=== PATIENT | female | born 2005 ===

== ENCOUNTER 2025-02-06 08:15 | Outpatient (CLI) | payer OTHER, SELFPAY | END 2025-02-06 08:16 | disposition home or self-care (01) | PROVIDERS: PCP Family Medicine; Visit Provider Family Medicine | DX: E28.2 Polycystic ovarian syndrome (principal); E66.3 Overweight; Z13.21 Encounter for screening for nutritional disorder | CPT/HCPCS: 80053; 80061; 82607; 84443; 84703 ==

== ENCOUNTER 2025-05-24 13:57 | Outpatient (CLI) | payer OTHER, SELFPAY ==
--- NOTE | 2025-05-24 14:00 | CRLHL7_ITS ---
For Patients: As a result of the Century Cures Act, medical imaging exams and procedure reports are released immediately into your electronic medical record. You may view this report before your referring provider. If you have questions, please contact your health care provider. OB ULTRASOUND FIRST TRIMESTER TRANSVAGINAL INDICATION: Dating and viability. TECHNIQUE: Real time dickey scale imaging of the fetus was performed. Transvaginal imaging performed. LMP: 03/26/2025. JOGRE by LMP: 12/31/2025. GA: 8 w, 3 d. Previous US: No. CRL: 2.3 cm. 9 w 0 d. JORGE: 12/27/2025. FHR: 178 BPM. Gestational sac: 3.4 cm. Appears within normal limits. Yolk sac: 3.5 mm. Appears within normal limits. Right ovary: Within normal limits. 3.3 x 1.3 x 1.8 cm. Left ovary: Within normal limits. 4.0 x 2.3 x 2.1 cm. IMPRESSION: 1. Single living intrauterine measuring 9 weeks 0 days and sonographic due date 12/27/2025. 2. Curvilinear subchorionic hemorrhage measures 1.9 x 0.6 x 1.6 cm. Hernan Donohue M.D. Diagnostic Radiologist [email or web address] SP/Dictated by: Hernan Donohue MD @ 05/24/2025 5:01:00 PM (Electronically Signed)
== END 2025-05-24 13:58 | disposition home or self-care (01) ==
LOC: US 13:58
PROVIDERS: PCP Family Medicine; Visit Provider Registered Nurse
DX: Z34.91 Encounter for supervision of normal pregnancy, unspecified, first trimester (principal); Z3A.08 8 weeks gestation of pregnancy
CPT/HCPCS: 76817

== ENCOUNTER 2025-05-24 16:16 | Outpatient (CLI) | payer OTHER, SELFPAY | END 2025-05-24 16:17 | disposition home or self-care (01) | LOC: NFLDREF 16:17 | PROVIDERS: PCP Family Medicine; Visit Provider Registered Nurse | DX: Z34.91 Encounter for supervision of normal pregnancy, unspecified, first trimester (principal); Z3A.08 8 weeks gestation of pregnancy; E04.1 Nontoxic single thyroid nodule | CPT/HCPCS: 83020; 83021; 84443; 85660; 86592; 86703; 86704; 86706; 86762; 86787; 86803; 86850; 86900; 86901; 87086; 87340; 87491; 87591 ==

== ENCOUNTER 2025-06-21 09:11 | Outpatient (CLI) | payer OTHER, SELFPAY ==
--- NOTE | 2025-06-21 09:15 | CRLHL7_ITS ---
For Patients: As a result of the Century Cures Act, medical imaging exams and procedure reports are released immediately into your electronic medical record. You may view this report before your referring provider. If you have questions, please contact your health care provider. INDICATION: Enlarged Thyroid on Exam COMPARISON: none TECHNIQUE: Begum scale and color Doppler images were acquired of the thyroid gland. FINDINGS: The thyroid gland demonstrates normal uniform echogenicity and has a smooth outer contour. The right lobe measures 4.6 x 1.3 x 1.4 cm and the left lobe measures 4.3 x 1.0 x 1.5 cm in size. Isthmus measures 2 millimeters. There are no suspicious masses or nodules. The color Doppler images demonstrate normal vascularity. There is no evidence of cervical lymphadenopathy or parathyroid mass. IMPRESSION: Normal thyroid ultrasound. Dictated by Hernan Donohue MD @ 06/21/2025 4:25:19 PM (Electronically Signed)
== END 2025-06-21 09:12 | disposition home or self-care (01) ==
LOC: US 09:11
PROVIDERS: PCP Family Medicine; Visit Provider Registered Nurse
DX: E04.9 Nontoxic goiter, unspecified (principal)
CPT/HCPCS: 76536

== ENCOUNTER 2025-07-16 01:46 | Emergency (ER) | payer OTHER, SELFPAY ==
--- OUTSIDE RECORDS SUMMARY | 2025-07-16 01:48 | XMS_ITS | Clinical Summary ---
Author Organization [email or web address] Address [address] [place] [id number] Care Team Providers Care Knitted Goods Shaper Name Role Phone Thomas Mcdowell MD Primary Care Provider Allergies No known active allergies Medications vit 28/iron fum/folic (multivitamin folic acid 1 mg) Take 1 Tablet by mouth once daily. Active acetaminophen (TYLENOL) 325 mg tabletIndicati ons:Vaginal delivery (HC) Take 1-2 Tablets (325-650 mg) by mouth every 4 hours if needed (mild pain). Max acetaminophen dose: 4000mg in 24 hrs. 4 Active ibuprofen (Motrin IB) 200 mg tabletIndicati ons:Vaginal delivery (HC) Take 1-3 Tablets (200-600 mg) by mouth every 6 hours if needed (for uterine cramping). Take with food. 4 Active docusate (COLACE) 100 mg capsuleIndicat ions:Vaginal delivery (HC) Take 1 Capsule (100 mg) by mouth once daily. 4 Active Active Problems Problem Noted Date Diagnosed Date Vaginal delivery 03/31/2024 Anemia affecting in third trimester Encounter for elective induction of labor 2023 Insufficient care 03/27/2024 Encounter for supervision of normal , unspecified, unspecified trimester 08/24/2023 Overview (03/30/2024): Term in 2021 Datin wk US (LMP unknown)08/24=8+0 FOB: Jayesh (significant other) Blood type: O pos (antibodies neg) Carrier/aneuploidy screening: Declined Rubella immune, Rh positive Influenza vaccine: anatomy scan: WNL OGTT: 134 Hb at 28 weeks: 11.4 Tdap: 01/11 GBS: Negative PPBC: POP Feeding plan: Breast Presentation at 33 wks: Cephalic Delivery Plans: IOL 39 weeks Next visit: Cervix check, confirm presentation Issues: ADHD: No medications, stable Renal Pyelectasis: Resolved at 33 weeks Single intrauterine at 33 w 1 d gestation. Growth consistent with the 51st percentile. Bilateral renal pelvis measurements within normal limits for gestational age, no further renal follow-up needed. 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 Attention deficit hyperactivity disorder (ADHD) 08/08/2018 Resolved Problems Problem Noted Date Diagnosed Date Resolved Date Vaginal delivery 08/22/2022 03/30/2024 Decreased movements in third trimester 08/20/2022 Viral upper respiratory tract infection 07/20/2022 08/20/2022 Supervision of young primigr avida, first trimester 01/08/2022 03/30/2024 Encounter for supervision of normal first , unspecified trimester 01/06/2022 022 Overview (07/20/2022): G1 Rubella immune, Rh pos Covid Vaccine: s/p Influenza vaccine: anatomy scan: wnl OGTT: passed Hb at 28 weeks: wnl Tdap: given on 06-01-2022 GBS: PPBC: Presentation at 36 wks: Next visit: Issues: 1. Teenage - s/p SW consult 2. ADHD - no meds 3. 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 Teenage - s/p SW consult 2. ADHD - no meds 3. 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 0 03/30/2024 Financial Resource Strain Answer Date R ecorded Difficulty of Paying Living Expenses 3 03/31/2024 Difficulty of Paying Living Expenses Not on file 03/31/2024 Food Insecurity Answer Date Recorded Do you worry your food will run out before you are able to buy more? 1 03/30/2024 Transportation Needs Answer Date Record ed Does lack of transportation keep you from medica l appointments? 1 03/30/2024 Does lack of transportation keep you from work, meetings or getting things that you need? 1 03/30/2024 Housing Stability Answer Date Recorded What is your housing situation today? 1 03/30/2024 Interpersonal Safety Answer Date Record ed Are you being hit, kicked, p ushed or yelled at (see row info)? No 03/30/2024 Interpersonal Safety Abuse 12 - 18 Not on file 03/30/2024 Interpersonal Safety Ambulatory Vulnerability No t on file 03/30/2024 Utilities Answer Date Recorded Do you have trouble paying f or utilities (for example, heat, electricity, water, phone)? 1 03/30/2024 Comments No Sex and Gender Information Value Date Recorded Sex Assigned at Not on file Legal Sex Female 7:11 AM [employer] WORK[employer] Gender Identity Not on file Sexual Orientation Not on file Obstetrics History Para Term AB IAB SAB Ectopic Multiple Livin g Live Births 3 2 2 1 1 0 2 2 Date Outcome GA Total Labor Labor/2nd/3rd Weight Sex Type Anes PTL Maria C A1 A5 Name Clin 2021 Term 40w 2d 16h 36m 15h 03m/1h 29m/0h 04m 3.53 kg (7 lb 12.5 oz) M Vag-Sp ont Livin g 6 8 STAND KE,BB SHERYL Carde alpa-S tophe l, Raque l Tares a, DO Delivery Location:Hospital ( [facility] ) SAB SPONTA NEOUS 2023 Term 39w 3d 7h 45m 7h 22m/0h 18m/0h 05m 3.21 kg (7 lb 1.2 oz) M VAGINA L SANJAY Epidur al Livin g 7 8 Noris Ardon MD Complications:Category II: I ndeterminate,Shoulder Dystocia Delivery Location:Hospital ( [facility] ) Last Filed Vital Signs Vital Sign Reading Time Taken Comments Blood Pressure 110/68 04/01/2024 8:00 AM CDT Pulse 68 04/01/2024 8:00 AM CDT Temperature 36.7 C (98 F) 04/01/2024 8:00 AM CDT Respiratory Rate 18 04/01/2024 8:00 AM CDT Oxygen Saturation 93% 03/31/2024 10:30 AM CDT Inhaled Oxygen Concentration - - Weight 77.6 kg (171 lb 1.2 oz) 03/30/2024 8:30 P M CDT Height 149.9 cm (4' 11) 03/30/2024 8:30 PM CDT Body Mass Index 34.55 03/30/2024 8:30 PM CDT Plan of Treatment Health Maintenance Due Date Last Done Comments Tetanus booster 2014 Depression screening for age 12+ 2015 HPV series for age 9-45 (1 - 3-dose series) 2018 BMI (ht and wt on same day) for age 18+ 2021 Hepatitis C screening for ag e 18-79 2021 Hepatitis B series for 19+ ( 1 of 3 - 19+ 3-dose series) 2022 Pap test for age 21-65 2024 COVID-19 vaccine series ( - 2024- season) 2025 02/11/2021, 01/15/2021 Influenza Vaccine (#1) 2025 RSV vaccine for adults or (1 - 1-dose 75+ series) 2078 HIV for age 15-65 Completed 10/18/2023, 01/08/2022, 01/08/2022 Meningococcal series for age 11-21 Aged Out No longer eligible b ased on patient's age to complete this topic Pneumococcal series for age 6-49 Aged Out No longer eligible b ased on patient's age to complete this topic Procedures Procedure Name Priority Date/Time Associated Diagnosis Comments HIV EXTERNAL Routine 10/18/2023 from Last 3 Months or Most Recently Relevant to Health Maintenance Results * HIV EXTERNAL (10/18/2023) EXTERNAL HIV Negative [facility] Blood BLOOD SPECIMEN / Unknown us Nrois Laureano MD LABORATORY Final Result [facility] [address] [place] [address], from Last 3 Months or Most Recently Relevant to Health Maintenance Insurance [facility] [place] Advance Directives * Full Code (Latest Code Status on File) Date Activated Date Inactivated Comments 03/31/2024 4:03 AM 04/01/2024 3:14 PM Question Answer Comments Code Status Discussion: Other pregnanc y * Full Code Date Activated Date Inactivated Comments 08/19/2022 5:44 PM 08/22/2022 12:17 PM Question Answer Comments Code Status Discussion: Discussed Care Teams Knitted Goods Shaper Relationship Specialty Start Date End Date Thomas Mcdowell MD PCP - General Family Practice 09/22/14
--- OUTSIDE RECORDS SUMMARY | 2025-07-16 01:48 | XMS_ITS | Clinical Summary ---
Author Organization [facility] Address [address] [place] [address] Care Team Providers Care Development Administrator Name Role Phone Evette Otto M.D. Primary Care Provider Source Comments Patient records contain information from all sites at [facility]. For routine questions regarding patient records, call [phone] during business hours, M-F 8:00 AM - 5:00 PM Central Time. Record requests for emergency care only can be directed to [phone] at any time.[facility] Allergies No known active allergies Medications * This document contains information received from the source organization and may not represent a complete record from that organization. acetaminophen (TYLENOL) 325 mg tablet Take 325 mg by mouth every 4 (four) hours as needed for pain. Active jbhlils-Zw-hrdr- FA (VINATE ONE) 60 mg iron-1 mg per tablet Take 1 tablet by mouth daily. Active sertraline (Zoloft) 50 mg tablet Take 1 tablet by mouth daily. 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 11/27/2024 Amputation Hand Status Post Right 01/06/2022 Attention Deficit With Hyperactivity Disorder Estimated Date of Delivery Comme nts Yes 09/14/2025 Based on last me nstrual period of 12/08/2024 (Approximate) Resolved Problems Problem Noted Date Diagnosed Date Resolved Date Care Insufficient 03/27/2024 0 05/08/2024 Encounter For Supervision Of Normal Unspecified Trimester 08/24/2023 05/08/2024 Overview (03/28/2024): Term in 2021 Datin wk US (LMP [...] stable Renal Pyelectasis: Resolved at 33 weeks Supervision Of Young Primigr avida First Trimester 01/08/2022 08/24/2023 Encounter For Supervision Of Normal First Unspecified Trimester 01/06/2022 08/24/20 23 Overview (08/16/2022): G1 Rubella immune, Rh pos Covid Vaccine: s/p Influenza vaccine: anatomy scan: wnl OGTT: passed Hb at 28 weeks: wnl Tdap: given on 06-01-2022 GBS: neg PPBC: Presentation at 36 wks: cephalic Next visit: IOL scheduled for 08/24 at 1930 Issues: 1. Teenage - s/p SW consult 2. ADHD - no meds 3. 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 Immunizations Immunization Administration Dates Next Due 4vHPV (discontinued) 03/02/2017,07/01/2016,04/08 DTaP (Daptacel) 04/23/2009 DTaP (Infanrix, Tripedia) 2005,07/2005,12/31/2004,2004 HepA Pediatric/Adolescent 04/08/2016,04/23/2009 Hib-HepB 2005,12/31/2004,10/01/2004 IPV 04/23/2009, 5,12/31/2004,2004 Influenza Split 07/21/2015 Influenza, Unspecified 07/01/2016 MCV4 (Menactra)(Discontinued) 05/25/2021, 016 MMR 04/23/2009,12/31/2004 PCV7 (discontinued) 2005,04/05/2005 SARS-COV-2 (COVID-19) - PFIZ ER (Discontinued)(12 years or older) 01/15/2021 Tdap 01/12/2024,,04/08/2016,2013 ANISA 04/23/2009,12/31/2004 influenza trivalent vaccine (6 months and older)(PF) 08/27/2009,08/02/2007 influenza vaccine quad (FLUZONE/FLUARIX) (6 months and older)(PF) 08/02/2022,07/04/2019,08/08/2018,2013 Social History Tobacco Use Types Packs/Day Years Used Date Smoking Tobacco: Never Passive Smoke Exposure: Never Smokeless Tobacco: Never Tobacco Cessation:Counseling Given: Not Answered Alcohol Use Standard Drinks/Week Comments No 0 (1 standard drink = 0.6 oz pur e alcohol) [facility] Carrier Mobileities Answer Date Recorded In the past 12 months has e [employer], oil, or water [employer] threatened to shut off services in your home? No 01/30/2025 Humiliation, Afraid, Rape, and Kick questionnair e Answer Date Recorded Within the last year, have y ou been afraid of your partner or ex-partner? No 01/30/2025 Within the last year, have y ou been humiliated or emotionally abused in other ways by your partner or ex-partner? No Within the last year, have y ou been kicked, hit, slapped, or otherwise physically hurt by your partner or ex-partner? No 01/30/2025 Within the last year, have y ou been raped or forced to have any kind of sexual activity by your partner or ex-partner? No 01/30/2025 Hunger Vital Sign Answer Date Recorded Within the past 12 months, y ou worried that your food would run out before you got the money to buy more. Never true 01/31/20 25 Within the past 12 months, t he food you bought just didn't last and you didn't have money to get more. Never true 01/30/2025 PRAPARE - Transportation Answer Date Re corded In the past 12 months, has l ack of transportation kept you from medical appointments or from getting medications? No 03/2025 In the past 12 months, has l ack of transportation kept you from meetings, work, or from getting things needed for daily living? No 01/30/2025 Depression Answer Date Recor ded PHQ-9 Total Score (max 27) 0 01/30 Housing Stability Answer Date Recorded What is your living situation today? I have a [facility] place to live 01/30/2025 Education Answer Date Recorded What is the highest level of school you have completed or the highest degree you have received? 12th grade 01/08/2022 Estimated Date of Delivery Comme nts Yes 09/14/2025 Based on last me nstrual period of 12/08/2024 (Approximate) Sex and Gender Information Value Date Recorded Sex Assigned at Not on file Legal Sex Female 6:42 AM APPLIER Gender Identity Not on file Sexual Orientation Straight 01/08/2022 8: 21 AM CDT Last Filed Vital Signs Vital Sign Reading Time Taken Comments Blood Pressure 130/84 01/28/2025 7:47 AM CDT Pulse 71 01/28/2025 7:47 AM CDT Temperature 36.2 C (97.1 F) 01/28/2025 7:47 AM CDT Respiratory Rate 16 01/05/2024 8:19 AM CDT Oxygen Saturation 97% 01/05/2024 8:19 AM CDT Inhaled Oxygen Concentration - - Weight 62.3 kg (137 lb 5.6 oz) 11/21/2024 10:20 AM APPLIER Height 153 cm (5' 0.24) 11/21/2024 10:20 AM APPLIER Body Mass Index 26.61 11/21/2024 10:20 AM APPLIER Plan of Treatment Health Maintenance Due Date Last Done Comments TB Screening during Well Child Visit 2003 1 week Well Child Check-Up 2003 1 month Well Child Check-Up 2003 2 month Well Child Check-Up 2003 4 month Well Child Check-Up 2003 9 month Well Child Check-Up 05/02/2004 15 month Well Child Check-Up 11/02/2004 18 month Well Child Check-Up 01/30/2005 2 year Well Child Check-Up 08/02/2005 30 month Well Child Check-Up 01/30/2006 3 year Well Child Check-Up 08/02/2006 Well Child Check-Up Completed in Past Year 08/02/2006 5 year Well Child Check-Up 08/02/2008 6 year Well Child Check-Up 08/02/2009 7 year Well Child Check-Up 08/02/2010 8 year Well Child Check-Up 08/02/2011 10 year Well Child Check-Up 08/02/2013 12 year Well Child Check-Up 08/02/2015 13 year Well Child Check-Up 08/02/2016 14 year Well Child Check-Up 08/02/2017 15 year Well Child Check-Up 08/02/2018 17 year Well Child Check-Up 08/02/2020 18 year Well Child Check-Up 08/02/2021 19 year Well Child Check-Up 08/02/2022 20 year Well Child Check-Up 08/02/2023 21 year Well Child Check-Up 08/02/2024 Well Child Check-Up (WCC) 08/02/2024 COVID-19 Vaccine ( - season) 2025 02/11/2021, 01/15/2021 Influenza Vaccine (#1) 2025 , 07/04/2019, 08/08/2018, Additional history exists Tdap vaccine - (27-36 weeks) (1 - Tdap) 06/15/2025 01/12/2024, 06/01/2022, 04/08/2016, Additional history exists RSV vaccine - (32-36 weeks) or 50+ years (1 - Risk 1-dose series) 07/20/2025 Cervical/Vaginal Cancer Screening 11/21/2025 11/21/2024 Chlamydia and Gonorrhea Screening 11/21/2025 08/24/2023, 06/15/2022, 01/08/2022 Postponed from 08/24/2024 (Patient Refused) DTaP,Tdap,and Td Vaccines (10 - Td or Tdap) 01/11/2034 01/12/2024, 06/01/2022, 04/08/2016, Additional history exists Hepatitis B Vaccines Completed 2005, 12/31/2004, 10/01/2004 Pneumococcal vaccine (0-49 years) Aged Out 2005, 04/05/2005 No longer eligibl e based on patient's age to complete this topic IPV Vaccines Completed 04/23/2009, 03/26, 12/31/2004, Additional history exists Varicella Vaccines Completed 04/23/2009, 12/31/2004 HPV Vaccines Completed 03/02/2017, 1002/2016, 04/08/2016 Meningococcal Vaccine Completed 05/25/2021, 016 HIV Screening Completed 10/18/2023, 01/08/2022 Hepatitis C Screening Completed 10/18/2023 , 01/08/2022, 08/25/2014 Depression Screening (Annual PHQ-2) Completed 01/30/2025 Medical Devices Implanted Type Area Senior Clinical Study Manager Device Identifier Shelf Expiration Date Model / Serial / Lot Conversions - Default Historical Implant Device Implanted:2013 (Quantity not on file) Hardware e.g. pins/screws/r ods Description:Device Status Te xt - Hardware. Wires in right arm. Procedures Procedure Name Priority Date/Time Associated Diagnosis Comments THINPREP SCREEN Routine 11/21/2024 10:41 AM APPLIER Pap Smear Examination HCV AB SCRN , S Routine 10/18/2023 9:23 AM APPLIER Encounter For Supervision Of Other Normal Unspecified Trimester (HCC) HIV-1/-2 AG AND AB SCRN, PLASMA Routine 10/18/2023 9:23 AM APPLIER Encounter For Supervision Of Other Normal Unspecified Trimester (HCC) CHLAMYDIA/GONORRHOE AE AMPLIFIED RNA Routine 08/24/2023 10:28 AM APPLIER Encounter For Supervision Of Other Normal Unspecified Trimester (HCC) from Last 3 Months or Most Recently Relevant to Health Maintenance Results * (ABNORMAL) ThinPrep Screen (11/21/2024 10:41 AM APPLIER) (A) 11/27/2024 1:53 PM APPLIER [facility] Report electronically signed by CARINE Hicks. Ch.B. I verify that I have examined all relevant slides/material s for the specimen(s) and rendered or confirmed the diagnosis. (A) 11/27/2024 1:53 PM APPLIER [facility] Gross Description Received specimen in a ThinPrep vial.(A) 11/27/2024 1:53 PM APPLIER [facility] Pap Test Source Cervical/Endoce rvical(A) 11/27/2024 1:53 PM APPLIER [facility] Hormone Therapy/Contracep tives None/Not known(A) 11/27/2024 1:53 PM APPLIER [facility] Interpretation Cervical/Endoce rvical (ThinPrep): Satisfactory for Evaluation Epithelial Cell Abnormality Atypical squamous cells of undetermined significance (A) 11/27/2024 1:53 PM APPLIER [facility] Thin Prep Vial (Cervix/Endocerv ix) 11/21/2024 10:41 AM APPLIER 11/21/2024 2:05 PM APPLIER us Rae Metz CNM, D.N.P. LAB PAP PATHDX ORDERA BLES Final Result [facility] [address] [place] [id number], [place] [facility] [address] * Hepatitis C Virus Antibody Screen (10/18/2023 9:23 AM APPLIER) HCV Ab Scrn , S Negative Negative 10/19/2023 8:37 AM APPLIER [facility] Comment:Sjbykg-il-ffknrr rat io is <1.00. Blood (Blood, Venous) 10/18/2023 9:23 AM APPLIER 10/19/2023 6:47 AM APPLIER us Rae Metz CNM, D.N.P. LAB MICROBIOLOGY - BL OOD ORDERABLES Final Result [facility] [address] [place] [address] [facility] [address] [place] [address] * HIV-1/-2 Ag and Ab Scrn, Plasma (10/18/2023 9:23 AM APPLIER) HIV Ag/Ab Scrn, P Negative Negative 10/18/2023 4:46 PM APPLIER [facility] Comment: Negative result does not rule out HIV infection. If exposure to HIV infection occurred <14 days ago, contact the laboratory to request addition of HIV-1/HIV-2 RNA detection , Plasma (HPP12). HIV-1 p24 Ag Scrn, P Negative Negative 10/18/2023 4:46 PM APPLIER [facility] Comment: Negative result does not rule out HIV infection. If exposure to HIV infection occurred <14 days ago, contact the laboratory to request addition of HIV-1/HIV-2 RNA detection , Plasma (HPP12). HIV-1 Ab Scrn, P Negative Negative 10/18/2023 4:46 PM APPLIER [facility] Comment: Negative result does not rule out HIV infection. If exposure to HIV infection occurred <14 days ago, contact the laboratory to request addition of HIV-1/HIV-2 RNA detection , Plasma (HPP12). HIV-2 Ab Scrn, P Negative Negative 10/18/2023 4:46 PM APPLIER [facility] Comment: Negative result does not rule out HIV infection. If exposure to HIV infection occurred <14 days ago, contact the laboratory to request addition of HIV-1/HIV-2 RNA detection , Plasma (HPP12). Blood (Blood, Venous) 10/18/2023 9:23 AM APPLIER 10/18/2023 3:07 PM APPLIER Rae Metz CNM, D.N.P. LAB MICROBIOLOGY - BL OOD ORDERABLES Final Result [facility] [address] [place] [id number], [facility] [address] [address] * Chlamydia / Gonorrhoeae Amplified RNA (08/24/2023 10:28 AM APPLIER) Source Swab, Vagina 08/24/2023 9:55 PM APPLIER [facility] Chlamydia trachomatis amplified RNA Negative Negative 08/24/2023 9:55 PM APPLIER [facility] Source Swab, Vagina 08/24/2023 9:55 PM APPLIER [facility] Neisseria gonorrhoeae amplified RNA Negative Negative 08/24/2023 9:55 PM APPLIER [facility] Swab (Vagina) 08/24/2023 10: 28 AM APPLIER 08/24/2023 2:24 PM APPLIER Rae Metz CNM, D.N.P. LAB MICROBIOLOGY - NERAL ORDERABLES Final Result Performing Organization Address City/State/[facility] Co de Phone Number [facility] [address] [place] [address], [facility] [address] [facility] [address] [place] [id number] from Last 3 Months or Most Recently Relevant to Health Maintenance Insurance [facility] [address] [place] [address] [facility] Care Teams Development Administrator Relationship Specialty Start Date End Date Evette Otto M.D. [address] [phone] PCP - General 05/27/24
[2025-07-16 01:50] VITALS: BP 126/85; PULSE 77; RESP 21; TEMP 37; O2SAT 98; BMI 30.5
[2025-07-16] MEDS: ACETAMINOPHEN 500 MG TABLET 1000 MG PO (02:13)
--- NOTE | 2025-07-16 02:47 | ED.GENADULT ---
HPI - General Adult General Chief complaint: OB/Uterine Contractions Stated complaint: possible miscarriage Time Seen by Provider: 07/16/25 02:08 Source: patient Mode of arrival: ambulatory Limitations: no limitations History of Present Illness HPI narrative: 19-year-old female G 4p2 at around 16 weeks gestation presents today with abdominal cramping for the last 6-7 hours, vaginal bleeding that just started upon arrival to the ED, and the sensation that she has to push. Related Data Home Medications ?Medication ?Instructions ?Recorded ?Confirmed docosahexaenoic acid 200 mg mg PO 05/24/25 06/21/25 capsule ( DHA) Previous Rx's ?Medication ?Instructions ?Recorded ondansetron 4 mg disintegrating 4 mg PO Q6-8H PRN nausea and 05/24/25 tablet vomiting #30 tabs escitalopram oxalate 10 mg tablet 10 mg PO QDAY #30 tabs 06/21/25 (Lexapro) Allergies Allergy/AdvReac Type Severity Reaction Status Date / Time No Known Drug Allergies Allergy Verified 07/16/25 01:58 Review of Systems Status of ROS: Reports: 6 or more systems reviewed and unremarkable except as noted in History and below [facility] Medical History Miscarriage ?O03.9 - Complete or unspecified spontaneous without complication (ICD-10) anxiety ?O99.345 - Other mental disorders complicating the puerperium (ICD-10) ?F41.8 - Other specified anxiety disorders (ICD-10) depression ?F53.0 - depression (ICD-10) ADHD (attention deficit hyperactivity disorder) ?F90.9 - Attention-deficit hyperactivity disorder, unspecified type (ICD-10) Acquired absence of right hand (2012) ?Z89.111 - Acquired absence of right hand (ICD-10) Surgical History History of vaginal delivery 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) ?Z89.9 - Acquired absence of limb, unspecified (ICD-10) Family History Other Family history not known due to adoption Social History Narrative: Significant other, [id number] mom, [place], 2 boys, lives in [place] Lifetime nonsmoker Does not drink alcohol What is your current living situation?: I presently have a place to live Problems where you live: declined to answer In the past 12 months, utilities in danger of being shut off: no In past 12 months, lack of transportation kept you from medical appts, meetings, work, or getting things needed for daily living: no In the past 12 mos, have been you worried that your food would run out before you had money to buy more?: never true In the past 12 mos, the food you bought just didn't last and you didn't have money to buy more?: never true How often does anyone, including family, friends and others, physically hurt you: never How often does anyone, including family, friends and others, insult or talk down to you: never How often does anyone, including family, friends and others, threaten you with harm: never How often does anyone, including family, friends and others, scream or curse at you: never Exam Narrative: Exam Narrative: Well-nourished well-developed patient in no acute distress. Alert and oriented. Answers questions appropriately. Mood and affect are appropriate. Thoughts are goal oriented and rational. No tangential or magical thinking noted. Patient speaks in full sentences without needing to catch her breath. HEENT: Normocephalic atraumatic. Pupils are equally round reactive to light. Extraocular muscles are intact. Conjunctivae are moist without any icterus noted. Moist mucous membranes. Cardiovascular: Heart is regular rate and rhythm S1 and S2 are present without any murmurs. Lungs: Clear to auscultation bilaterally no wheezes rhonchi or rales are appreciated. Abdomen: Soft and nondistended with normal bowel sounds. Suprapubic tenderness. Extremities: Bilateral lower extremities are without edema. Skin: Well perfused without any obvious rashes. Const: Vital Signs, click to edit/add: Vital Signs - 24 hr 07/16/25 01:50 07/16/25 03:16 Temperature 98.6 F 98.6 F Pulse Rate [Right Pulse Oximeter] 77 105 H Respiratory Rate 21 16 Blood Pressure [Ri ght Upper Arm] 126/85 104/66 Pulse Oximetry 98 100 Oxygen Delivery Me thod Room Air Room Air Course Course ED Course: I did to a ultrasound where I did not see a heartbeat. Could not get heart tones on Doppler. Consulted with OBGYN, Dr. Min who recommended ultrasound and admission for observation. Did call for a official ultrasound. While we were waiting for the ultrasound patient did feel the need to push ended up delivering an intact amniotic fluid bag with the fetus inside. Placenta delivered with it, intact. Post , patient had no more pain. She had minimal bleeding. Did not require intervention. Patient remained hemodynamically stable and requested discharge at this time. Vital Signs Vital signs: Initial Vital Signs Temperature 98.6 F 07/16/25 01:50 Temperature Source Temporal Artery Scan 07/16/25 01:50 Pulse Rate 77 07/16/25 01:50 Pulse Rhythm Regular 07/16/25 01:50 Respiratory Rate 21 07/16/25 01:50 Blood Pressure 126/85 07/16/25 01:50 Blood Pressure Mean 98 07/16/25 01:50 Blood Pressure Position Standing 07/16/25 01:50 Pulse Oximetry 98 07/16/25 01:50 Oxygen Delivery Method Room Air 07/16/25 01:50 Vital Signs Temperature 98.6 F 07/16/25 01:50 Pulse Rate 77 07/16/25 01:50 Respiratory Rate 21 07/16/25 01:50 Blood Pressure 126/85 07/16/25 01:50 Pulse Oximetry 98 07/16/25 01:50 Oxygen Delivery Method Room Air 07/16/25 01:50 Temperature 98.6 F 07/16/25 03:16 Pulse Rate 105 H 07/16/25 03:16 Respiratory Rate 16 07/16/25 03:16 Blood Pressure 104/66 07/16/25 03:16 Pulse Oximetry 100 07/16/25 03:16 Oxygen Delivery Method Room Air 07/16/25 03:16 Medications Administered Medications: Discontinued Medications Generic Name Dose Route Start Last Admin Trade Name Freq PRN Reason Stop Dose Admin Acetaminophen 1,000 mg 07/16/25 02:08 07/16/25 02:13 Acetaminophen 500 Mg Tablet PO 07/16/25 02:09 1,000 mg ONCE ONE Administration Medical Decision Making MDM Narrative Medical decision making narrative: demise with spontaneous . Fetus will be sent for standard pathology and chromosomal analysis with patient consent. Discharge Plan Discharge Clinical Impression: Spontaneous at 8 to 28 weeks gestation Patient Disposition: Home, Self-Care Condition: Stable Instructions: Miscarriage (ED) Additional Instructions: Recommend you follow-up with your OBGYN/mobility architect manager team this week. Return to the emergency department if he your bleeding increases to the point that you are soaking 1 pad per hour or more. Prescriptions: No Action DHA 200 mg capsule PO ondansetron 4 mg tablet,disintegrating 4 mg PO Q6-8H PRN (Reason: nausea and vomiting) Qty: 30 0RF escitalopram oxalate [Lexapro] 10 mg tablet 10 mg PO QDAY Qty: 30 0RF Rx Instructions: Take 1/2 tablet by mouth once a day for 7 days then increase to 1 tablet by mouth once a day. Follow Up/Referrals: Emma Malhotra MD [Primary Care Provider, Family Practice] Stand Alone Forms: [employer] [facility] Info Instructions
[2025-07-16 03:16] VITALS: BP 104/66; PULSE 105; RESP 16; TEMP 37; O2SAT 100
== END 2025-07-16 04:21 | disposition home or self-care (01) ==
PROVIDERS: Emergency Provider Family Medicine; PCP Family Medicine
DX: O03.9 Complete or unspecified spontaneous abortion without complication (principal); Z3A.16 16 weeks gestation of pregnancy
CPT/HCPCS: 84702; 85025; 88300; 88305; 99284; 99285; A9270